=== PATIENT | female | born 1970 | race Hispanic/Latino ===

== ENCOUNTER 2021-05-19 07:15 | Emergency (ER) | payer OTHER ==
[2021-05-19] MEDS ORDERED: CYCLOBENZAPRINE 10 MG TAB ONE (07:53)
[2021-05-19] MEDS ORDERED: IBUPROFEN 400 MG TAB ONE (07:54)
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
[2021-05-19] MEDS ORDERED: HYDROCODONE/APAP 5/325 MG TAB ONE (10:00)
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
[2021-05-19 11:19] VITALS: BP 141/95; TEMP 98.2; O2SAT 99
== END 2021-05-19 11:12 | disposition home or self-care (01) ==
LOC: ER 07:15
DX: S16.1XXA Strain of muscle, fascia and tendon at neck level, initial encounter (principal); S39.012A Strain of muscle, fascia and tendon of lower back, initial encounter; S33.8XXA Sprain of other parts of lumbar spine and pelvis, initial encounter; V49.40XA Driver injured in collision with unspecified motor vehicles in traffic accident, initial encounter
CPT/HCPCS: 70450; 72125; 72220; 99284